=== PATIENT | male | born 1980 | race Two or more races ===

== ENCOUNTER → 2023-04-22 | Emergency (ER) | payer OTHER ==
[~2023-04-22] MED LIST: KETOROLAC 30 MG/ML INJ ONE; LABETALOL 20 MG/4ML SYRINGE IV ONE; LORazepam 2 MG/ML VIAL ONE
--- NOTE | 2023-04-22 12:19 | RAD REPORT ---
EXAM DESCRIPTION: [place] Single View04/22/2023 12:07 pm CLINICAL HISTORY: Chest pain COMPARISON: none FINDINGS: The lungs appear clear of acute infiltrate. The heart is normal size IMPRESSION: No acute abnormalities displayed
[2023-04-22 12:32] LABS: Absolute Lymphocytes (CBC) 3.4 K/uL (0.7-4.9); Hematocrit 49.9 % (39.6-49.0); Lymphocytes % 23.5 % (15.3-44.8); MCV 82.7 fL (80-100); MPV 8.5 fL (7.6-11.3); Platelets 504 thou/uL (152-406); RBC Red Blood Cell Count 6.03 M/uL (4.33-5.43)
[2023-04-22 12:35] LABS: Protime INR 1.18
[2023-04-22 12:45] LABS: Barbiturates NEGATIVE (NEGATIVE); Benzodiazepines NEGATIVE (NEGATIVE); Cocaine NEGATIVE (NEGATIVE); METHAMPHETAM NEGATIVE (NEGATIVE); Methadone NEGATIVE (NEGATIVE); Opiates NEGATIVE (NEGATIVE); Phencyclidine NEGATIVE (NEGATIVE); THC Cannibis POSITIVE (NEGATIVE)
[2023-04-22 12:46] LABS: ALT/SGPT 66 U/L (16-61); AST/SGOT 25 U/L (15-37); Albumin 3.9 g/dL (3.4-5.0); Alkaline Phosphatase 80 U/L (45-117); BUN Blood Urea Nitrogen 10 mg/dL (7-18); Bicarbonate 23 mEq/L (21-32); Bilirubin Total 0.4 mg/dL (0.2-1.0); Glomerular Filtration Rate 93 ml/min (=/>90); Glucose Level 123 mg/dL (74-106); Magnesium 1.9 mg/dL (1.6-2.4); NT PRO-BNP 8 pg/mL (<125); Potassium 4.1 mEq/L (3.5-5.1); Protein, Total 8.7 g/dL (6.4-8.2); Sodium Level 135 mEq/L (136-145); Troponin High Sensitivity 4.2 pg/mL (<58.9)
[2023-04-22 12:47] LABS: Bilirubin Direct < 0.1 mg/dL (0-0.2); Bilirubin Indirect, Calculated ND mg/dL (0.2-0.8)
--- NOTE | 2023-04-22 15:12 | EDPHYS ---
Physician Documentation [facility] Name: Delon Aburto Jr Age: 43 yrs Sex: Male : 1980 Arrival Date: 04/22/2023 Time: 11:44 Bed 16 Private MD: ED Physician Rafaela Gonzalez HPI: 04/22 12:00 This 43 yrs old Male presents to ER via EMS with complaints of chest pain. sp3 12:02 43-year-old male with a history of "electrolyte problems in the past" and "my heart sp3 stopped once they had to give me some medication to be started" as well as hyperlipidemia, anxiety, major depression, PTSD, who is a patient of the [facility] now presents to ED with chief complaint chest pain. Patient initially went to the [place] [facility] who performed an EKG which showed tachycardia without other ischemic changes coupled with elevated blood pressure therefore sent patient here via EMS. Patient states he is having chest pain and "muscle spasm on his chest and his back." He denies headache, URI symptoms, fever neck pain, throat pain, back pain (only back muscle spasm) abdominal pain, nausea, vomiting, diarrhea, syncope, near syncope, focal neurological deficit, bleeding of any kind, extremity spasm, drug use, known sick contacts, travel history or any other signs or symptoms on ROS at this time. Symptoms have been going on for 1 to 2 days off-and-on.. Historical: - Allergies: 11:56 No Known Allergies; kd3 - Immunization history:: Adult Immunizations up to date. - Social history:: Smoking status: Reported history of juuling and/or vaping. ROS: 12:05 Constitutional: Negative for fever, chills, and weight loss, Eyes: Negative for injury, sp3 pain, redness, and discharge, ENT: Negative for injury, pain, and discharge, Neck: Negative for injury, pain, and swelling, Respiratory: Negative for shortness of breath, cough, wheezing, and pleuritic chest pain, Abdomen/GI: Negative for abdominal pain, nausea, vomiting, diarrhea, and constipation, MS/Extremity: Negative for injury and deformity, Skin: Negative for injury, rash, and discoloration, Neuro: Negative for headache, weakness, numbness, tingling, and seizure, Psych: Negative for depression, anxiety, suicide ideation, homicidal ideation, and hallucinations, Allergy/Immunology: Negative for hives, rash, and allergies, Endocrine: Negative for neck swelling, polydipsia, polyuria, polyphagia, and marked weight changes, Hematologic/Lymphatic: Negative for swollen nodes, abnormal bleeding, and unusual bruising, 12:05 All other systems are negative, Exam: 12:06 Constitutional: This is a well developed, well nourished patient who is awake, alert, sp3 and in no acute distress. Head/Face: Normocephalic, atraumatic. Eyes: Pupils equal round and reactive to light, extra-ocular motions intact. Lids and lashes normal. Conjunctiva and sclera are non-icteric and not injected. Cornea within normal limits. Periorbital areas with no swelling, redness, or edema. ENT: Nares patent. No nasal discharge, no septal abnormalities noted. External auditory canals are clear. Oropharynx with no redness, swelling, or masses, exudates, or evidence of obstruction, uvula midline. Mucous membranes moist. Neck: Trachea midline, no thyromegaly or masses palpated, and no cervical lymphadenopathy. Supple, full range of motion without nuchal rigidity, or vertebral point tenderness. No Meningismus. Chest/axilla: Normal chest wall appearance and motion. Nontender with no deformity. No lesions are appreciated. Respiratory: Lungs have equal breath sounds bilaterally, clear to auscultation and percussion. No rales, rhonchi or wheezes noted. No increased work of breathing, no retractions or nasal flaring. Abdomen/GI: Soft, non-tender, with normal bowel sounds. No distension or tympany. No guarding or rebound. No evidence of tenderness throughout. Back: No spinal tenderness. No costovertebral tenderness. Full range of motion. Skin: Warm, dry with normal turgor. Normal color with no rashes, no lesions, and no evidence of cellulitis. MS/ Extremity: Pulses equal, no cyanosis. Neurovascular intact. Full, normal range of motion. Neuro: Awake and alert, GCS 15, oriented to person, place, time, and situation. Cranial nerves II-XII grossly intact. Motor strength 5/5 in all extremities. Sensory grossly intact. Cerebellar exam normal. Normal gait. Psych: Awake, alert, with orientation to person, place and time. Behavior, mood, and affect are within normal limits. 12:06 Cardiovascular: Patient is tachycardic. Remainder of cardiac exam is normal., 12:06 ECG was reviewed by the Attending Physician. EKG demonstrates sinus tachycardia at 102 bpm with normal intervals, normal axis, normal QRS and nonspecific diffuse ST's ST changes with T wave inversions diffusely without any significant ischemic changes. No old EKGs available. Vital Signs: 11:52 BP 142 / 113; Pulse 101; Resp 20; Pulse Ox 97% on R/A; Weight 108.86 kg; Height 6 ft. 3 kd3 in. ; Pain 8/10; 11:57 Temp 98.7(O); kd3 12:33 BP 151 / 113; Pulse 96; Resp 17; Pulse Ox 97% on R/A; kd3 14:31 BP 158 / 126; Pulse 111; Resp 15; Pulse Ox 97% on R/A; kd3 15:11 BP 147 / 118; Pulse 119; Resp 17; Pulse Ox 97% on R/A; kd3 15:40 BP 151 / 119; Pulse 93; Resp 17; Pulse Ox 96% on R/A; kd3 16:31 BP 143 / 111; Pulse 86; Resp 17; Pulse Ox 96% on R/A; kd3 17:05 BP 141 / 108; Pulse 89; Resp 17; Pulse Ox 98% on R/A; kd3 17:39 BP 131 / 107; Pulse 91; Resp 15; Pulse Ox 97% on R/A; kd3 11:52 Body Mass Index 30.00 (108.86 kg, 190.5 cm) kd3 11:52 Pain Scale: Adult kd3 MDM: 11:53 Patient medically screened. sp3 12:07 Data reviewed: vital signs, nurses notes, EMS record, lab test result(s), EKG, sp3 radiologic studies. ED course: 43-year-old male with history above now [facility]. Differential diagnosis includes acute coronary syndrome spectrum, musculoskeletal pain, GERD/reflux, pulmonary pathology, among others. I am not highly suspicious for aortic pathology including dissection or aneurysm, sepsis, shock or any other critical pathology. Will also obtain a urine drug screen. Disposition pending workup and patient course.. 15:11 ED course: Patient still tachycardic and having chest pain. At this point we will give sp3 labetalol IV and CT scan of the chest. Will consider admiting patient to observation status.. 17:38 ED course: Vital signs now significantly better and patient is sleeping. CT scan of the sp3 chest demonstrates no abnormality. We will safely discharge him home at this time.. 04/22 11:53 Order name: Basic Metabolic Panel; Complete Time: 13:18 04/22 11:53 Order name: CBC with Diff; Complete Time: 13:18 04/22 11:53 Order name: LFT's; Complete Time: 13:18 04/22 11:53 Order name: Magnesium; Complete Time: 13:18 04/22 11:53 Order name: NT PRO-BNP; Complete Time: 13:18 04/22 11:53 Order name: PT-INR; Complete Time: 13:18 04/22 11:53 Order name: Troponin HS; Complete Time: 13:18 04/22 12:00 Order name: UDS; Complete Time: 13:18 04/22 12:13 Order name: [place]; Complete Time: 13:18 04/22 11:53 Order name: XRAY Chest (1 view); Complete Time: 12:04/22 15:16 Order name: CT Chest For PE Angio; Complete Time: 17:36 04/22 11:53 Order name: EKG; Complete Time: 11:54 04/22 11:53 Order name: Cardiac monitoring; Complete Time: 12:29 04/22 11:53 Order name: EKG - Nurse/Tech; Complete Time: 12:04 04/22 11:53 Order name: IV Saline Lock; Complete Time: 12:04/22 11:53 Order name: Labs collected and sent; Complete Time: 12:29 04/22 11:53 Order name: O2 Per Protocol; Complete Time: 12:04/22 11:53 Order name: O2 Sat Monitoring; Complete Time: 12:04/22 13:36 Order name: Recheck Vital Signs; Complete Time: 15:17 sp3 Administered Medications: 14:30 Drug: Ativan IVP 1 mg IVP once Route: IVP; Site: left forearm; kd3 14:30 Drug: Ketorolac IVP 30 mg IVP once Route: IVP; Site: left forearm; kd3 15:26 Drug: Labetalol IV 10 mg IV at calculated rate once Route: IV; Rate: calculated rate; kd3 Site: left femoral; Disposition Summary: 04/22/23 17:39 Discharge Ordered Notes: Location: Home(04/22/23 17:39) sp3 Condition: Stable(04/22/23 17:39) sp3 Diagnosis - Chest pain, unspecified sp3 Followup: sp3 - With: Private Physician - When: Upon discharge from the Emergency Department - Reason: Continuance of care Followup: sp3 - With: Solomon Cardona MD - When: Upon discharge from the Emergency Department - Reason: Recheck today's complaints Discharge Instructions: - Discharge Summary Sheet sp3 - Nonspecific Chest Pain, Adult sp3 - Muscle Cramps and Spasms sp3 Forms: - Medication Reconciliation Form sp3 - Thank You Letter sp3 - Antibiotic Education sp3 - Prescription Opioid Use sp3 - Patient Portal Instructions sp3 - Leadership Thank You Letter sp3 Prescriptions: - Diclofenac Sodium 75 mg Oral Tablet Sustained Release - take 1 tablet ORAL route 2 times per day; 30 tablet; Refills: 0, Product sp3 Selection Permitted - Cyclobenzaprine 5 mg Oral Tablet - take 1 tablet ORAL route 3 times per day As needed; 15 tablet; Refills: 0, sp3 Product Selection Permitted Signatures: Dispatcher [employer] EDMS Rafaela Gonzalez MD MD sp3 Damari Sam RN RN kd3 Corrections: (The following items were deleted from the chart) 15:15 15:11 Home sp3 sp3 15:15 15:11 Stable sp3 sp3 15:15 15:11 Chest pain, muscle spasm, back spasm sp3 sp3 15:17 15:11 ED course: Patient improved after medications. Vital signs are improved with sp3 blood pressure lowering and heart rate in the 90s. He is resting comfortably. We will discharge him home on diclofenac [facility] sp3 17:38 15:11 ED course: Patient still tachycardic and having chest pain. At this point we will sp3 give labetalol IV and CT scan of the chest. Will admit patient to observation status and when serial cardiac markers obtain cardiology consultation.. sp3
--- NOTE | 2023-04-22 15:12 | ER ---
Nurse's Notes [facility] Name: Delon Aburto Jr Age: 43 yrs Sex: Male : 1980 Arrival Date: 04/22/2023 Time: 11:44 Bed 16 Private MD: Diagnosis: Chest pain, unspecified Presentation: 04/22 11:52 Chief complaint: EMS states: [facility] kd3 located at the center of the chest. Pt states that he can feel pulsating in his chest. Pt reports that he takes amlodipine for his blood pressure and he took 4 baby aspirins 6 hours prior to arrival. Pt is noted to be hypertensive on the monitor. Pt is alert and oriented x 4, respirations are even and unlabored, pt's skin is cool to the touch despite the pt reporting feeling "hot". EKG done in the room and provided to the provider. Coronavirus screen: Vaccine status: Patient reports being unvaccinated. Ebola Screen: No symptoms or risks identified at this time. Initial Sepsis Screen: Does the patient meet any 2 criteria? No. Patient's initial sepsis screen is negative. Does the patient have a suspected source of infection? No. Patient's initial sepsis screen is negative. Risk Assessment: Do you want to hurt yourself or someone else? Patient reports no desire to harm self or others. Onset of symptoms was April 22, 2023. 11:52 Method Of Arrival: EMS: [facility] kd3 11:52 Acuity: MARILYN 3 kd3 Triage Assessment: 11:57 General: Appears uncomfortable, Behavior is calm, cooperative. Pain: Complains of pain kd3 in chest. Neuro: Level of Consciousness is awake, alert, obeys commands, Oriented to person, place, time, situation. Cardiovascular: Patient's skin is warm and dry. Respiratory: Airway is patent Trachea midline Respiratory effort is even, unlabored, Respiratory pattern is regular, symmetrical. Historical: - Allergies: 11:56 No Known Allergies; kd3 - Immunization history:: Adult Immunizations up to date. - Social history:: Smoking status: Reported history of juuling and/or vaping. Screenin:32 [facility] ED Fall Risk Assessment (Adult) History of falling in the last 3 months, kd3 including since admission No falls in past 3 months (0 pts) Confusion or Disorientation No (0 pts) Intoxicated or Sedated No (0 pts) Impaired Gait No (0 pts) Mobility Assist Device Used No (0 pt) Altered Elimination No (0 pt) Score/Fall Risk Level 0 - 2 = Low Risk Oriented to surroundings. Abuse screen: Denies threats or abuse. Denies injuries from another. Nutritional screening: No deficits noted. Tuberculosis screening: No symptoms or risk factors identified. Assessment: 12:29 General: PT seen resting in the stretcher, pt appears uncomfortable and is complaining kd3 of upper epigastric cramping and chest pain. Pt remains hypertensive on the monitor and states that he did take his amlodipine and anti-anxiety medications this morning. IV access obtained in the left forearm using ultrasound guided technique. Blood work collected and sent to the lab. Pt urine sample collected and sent to the lab. When the patient stood up to use the urinal, pt's heart rate increased to 160's. Pt now resting in the stretcher with HR in the 90's, side rails are up x 2, and call light is within reach. . 14:30 General: This RN administered ant-anxiety medications and pain medications. Updated the kd3 patient on the plan to recheck his vital signs after medication administration. . 15:12 General: Pt reports minimal relied in symptoms with medications. Pt states that he kd3 still has chest pain. . Vital Signs: 11:52 BP 142 / 113; Pulse 101; Resp 20; Pulse Ox 97% on R/A; Weight 108.86 kg; Height 6 ft. 3 kd3 in. ; Pain 8/10; 11:57 Temp 98.7(O); kd3 12:33 BP 151 / 113; Pulse 96; Resp 17; Pulse Ox 97% on R/A; kd3 14:31 BP 158 / 126; Pulse 111; Resp 15; Pulse Ox 97% on R/A; kd3 15:11 BP 147 / 118; Pulse 119; Resp 17; Pulse Ox 97% on R/A; kd3 15:40 BP 151 / 119; Pulse 93; Resp 17; Pulse Ox 96% on R/A; kd3 16:31 BP 143 / 111; Pulse 86; Resp 17; Pulse Ox 96% on R/A; kd3 17:05 BP 141 / 108; Pulse 89; Resp 17; Pulse Ox 98% on R/A; kd3 17:39 BP 131 / 107; Pulse 91; Resp 15; Pulse Ox 97% on R/A; kd3 11:52 Body Mass Index 30.00 (108.86 kg, 190.5 cm) kd3 11:52 Pain Scale: Adult kd3 ED Course: 11:46 Patient arrived in ED. em1 11:48 Rafaela Gonzalez MD is Attending Physician. sp3 11:52 Damari Sam, AISHA is Primary Nurse. kd3 11:56 Triage completed. kd3 11:57 Arm band placed on right wrist. kd3 12:09 XRAY Chest (1 view) In Process Unspecified. EDMS 12:29 [place] Sent. kd3 12:29 UDS Sent. kd3 12:29 Basic Metabolic Panel Sent. kd3 12:29 CBC with Diff Sent. kd3 12:29 LFT's Sent. kd3 12:29 Magnesium Sent. kd3 12:29 NT PRO-BNP Sent. kd3 12:29 PT-INR Sent. kd3 12:29 Troponin HS Sent. kd3 12:33 Inserted saline lock: 20 gauge in left forearm, using aseptic technique. Blood kd3 collected. 14:32 Patient has correct armband on for positive identification. Provided Education on: kd3 anti-anxiety medications . 15:59 CT Chest For PE Angio In Process Unspecified. EDMS 17:38 Solomon Cardona MD is Referral Physician. sp3 17:50 No provider procedures requiring assistance completed. IV discontinued, intact, kd3 bleeding controlled, No redness/swelling at site. Pressure dressing applied. Administered Medications: 14:30 Drug: Ativan IVP 1 mg IVP once Route: IVP; Site: left forearm; kd3 14:30 Drug: Ketorolac IVP 30 mg IVP once Route: IVP; Site: left forearm; kd3 15:26 Drug: Labetalol IV 10 mg IV at calculated rate once Route: IV; Rate: calculated rate; kd3 Site: left femoral; Medication: 14:32 VIS not applicable for this client. kd3 Outcome: 15:11 Discharge ordered by . sp3 17:39 Discharge ordered by . sp3 17:51 Discharged to home ambulatory, kd3 17:51 Condition: stable 17:51 Discharge instructions given to patient, Instructed on discharge instructions, follow up and referral plans. Demonstrated understanding of instructions, follow-up care, medications, Prescriptions given X 2, 17:51 Patient left the ED. kd3 Signatures: Dispatcher [employer] Yobany Wheeler em1 Rafaela Gonzalez MD MD sp3 Damari Sam, RN RN kd3
--- NOTE | 2023-04-22 17:26 | RAD REPORT ---
EXAM DESCRIPTION: CT - Chest For Pe Angio - 04/22/2023 3:58 pm CLINICAL HISTORY: CHEST PAIN COMPARISON: No comparisons TECHNIQUE: Thin axial CT images of the chest were obtained following administration of 100 mL Isovue 370 IV contrast. Multiplanar reconstructions, and maximum intensity projection reconstructions were generated and reviewed. Exam utilizes a protocol for optimal evaluation of pulmonary arterial tree. All CT scans are performed using dose optimization technique as appropriate and may include automated exposure control or mA/KV adjustment according to patient size. FINDINGS: Pulmonary arteries are normal. No emboli or other suspicious finding. No acute or signific ant aorta findings. No mass or infiltrate in the lung parenchyma. No pleural thickening or pleural effusion. No pneumotho rax. No abnormal mediastinal or hilar masses or lymphadenopathy seen. No chest wall mass or abnormal axill iary lymphadenopathy. Diffuse hepatic parenchymal hypoattenuation suggesting steatosis. IMPRESSION: No evidence of acute central pulmonary emboli. No other acute pulmonary process.
[2023-04-22 19:49] VITALS: TEMP 98.7; O2SAT 97
[2023-04-22 19:59] VITALS: BP 131/107
--- NOTE | 2023-04-23 13:25 | EKG ---
Test Date: 2023-04-22 Test Time: 11:48:32 Still Operator: SHADI MEASUREMENT RESULTS: Intervals: Rate: 102 WI: 162 QRSD: 82 QT: 338 QTc: 440 [place]: P: 63 WI: 162 QRS: 69 T: 8 INTERPRETIVE STATEMENTS: Sinus tachycardia Nonspecific ST and T wave abnormality Abnormal ECG No previous ECG available for comparison Electronically Signed On 04-23-23 13:22:49 CONTACT FINGER ASSEMBLER by Solomon Cardona
== END ==
LOC: ER 11:44
DX: R07.89 Other chest pain (principal)
CPT/HCPCS: 93005; 85025; 80048; 36415; 83735; 85610; 80178; 80076; 84484; 83880; 80307; 71275; 71045; 99284; Q9967

== ENCOUNTER 2023-08-01 11:28 | Observation (INO) | payer OTHER ==
[2023-08-01] MEDS ORDERED: LABETALOL 20 MG/4ML SYRINGE IV ONE ×2 (11:50→13:17)
[2023-08-01] MEDS ORDERED: ASPIRIN 81 MG CHEWABLE TABLET ONE (11:50)
--- NOTE | 2023-08-01 11:54 | RAD REPORT ---
EXAM DESCRIPTION: RAD - Chest Single View - 08/01/2023 11:47 am CLINICAL HISTORY: CHEST PAIN COMPARISON: Chest Single View dated 04/22/2023 FINDINGS: Lines: None. Lungs: No evidence of edema or pneumonia. Pleural: No significant pleural effusions or pneumothorax. Cardiac: The heart size is within normal limits. Mediastinum: Within normal limits. Bones: No acute fractures. Other: None IMPRESSION: No acute cardiopulmonary disease.
[2023-08-01] MEDS ORDERED: LORazepam 2 MG/ML VIAL ONE (11:58)
[2023-08-01 12:06] LABS: Absolute Basophils 0.1 K/uL (0-0.5); Absolute Eosinophils 0.4 K/uL (0-0.5); Absolute Lymphocytes (CBC) 3.8 K/uL (0.7-4.9); Absolute Monocytes 1.1 K/uL (0.1-1.3); Absolute Neutrophil 8.2 K/uL (1.8-8.0); Basophils % 0.8 % (0-1.3); Eosinophils % 2.8 % (0-4.4); Hematocrit 47.5 % (39.6-49.0); Hemoglobin 15.5 g/dL (13.6-17.9); Lymphocytes % 28.1 % (15.3-44.8); MCH 27.3 pg (27.0-35.0); MCHC 32.6 g/dL (32.0-36.0); MCV 83.9 fL (80-100); MPV 8.8 fL (7.6-11.3); Monocytes % 8.2 % (3.3-12.3); Neutrophils % 60.1 % (41.7-73.7); Nucleated Red Blood Cells % 0.1 % (0-0); Platelets 433 thou/uL (152-406); RBC Red Blood Cell Count 5.67 M/uL (4.33-5.43); Red Cell Distribution Width 13.5 % (12.1-15.2)
[2023-08-01 12:21] LABS: Anion Gap 8.8 mEq/L (5.0-15.0); Magnesium 1.9 mg/dL (1.6-2.4); Potassium 3.8 mEq/L (3.5-5.1); Troponin High Sensitivity 3.5 pg/mL (<58.9)
[2023-08-01] MEDS ORDERED: KETOROLAC 30 MG/ML INJ ONE (13:24)
[2023-08-01 14:37] LABS: PT Prothrombin Time 12.6 SECONDS (9.5-12.5); Protime INR 1.15
[2023-08-01] MEDS ORDERED: HYDRALAZINE HCL 25 MG TABLET ONE (14:38)
[2023-08-01] MEDS ORDERED: NITROGLYCERIN 0.4 MG/TAB SL ONE (14:50)
--- NOTE | 2023-08-01 15:17 | EDPHYS ---
Physician Documentation [facility] Name: Delon Aburto Jr Age: 43 yrs Sex: Male : 1980 Arrival Date: 08/01/2023 Time: 11:28 Bed 7 Private MD: ED Physician Arnie Purcell HPI: 07/31 11:36 This 43 yrs old [place] Male presents to ER via Ambulatory with complaints of Chest 7 Pain, Weakness, Blood Pressure Problem. 11:36 Onset: The symptoms/episode began/occurred 3 month(s) ago. 43-year-old male with past [facility] medical history of hypertension, PTSD, and anxiety presents to the ER complaining of chest pain and elevated blood pressure for the past 3 months. Reports that he has been unable to fill his blood pressure medicine and his anxiety medication due to the [place] constantly rescheduling his appointments. Reports difficulty sleeping. Reports that his symptoms have not worsened, but are unchanged from his last visit to the ER. Denies syncope, dizziness, shortness of breath, fever, cough, or any other symptoms at this time.. Historical: - Allergies: 11:35 lactose (bulk); ld1 - PMHx: 11:35 Hypertensive disorder; ld1 - PSHx: 11:35 None; ld1 - Immunization history:: Adult Immunizations up to date. - Infectious Disease History:: Denies. - Social history:: Smoking status: Reported history of juuling and/or vaping. ROS: 11:36 Constitutional: Per HPI jh7 Exam: 11:36 Constitutional: This is a well developed, well nourished patient who is awake, alert, jh7 and in no acute distress. Head/Face: Normocephalic, atraumatic. Neck: Trachea midline, no thyromegaly or masses palpated, and no cervical lymphadenopathy. Supple, full range of motion without nuchal rigidity, or vertebral point tenderness. No Meningismus. Cardiovascular: Regular rate and rhythm with a normal S1 and S2. No gallops, murmurs, or rubs. Normal PMI, no JVD. No pulse deficits. Respiratory: Lungs have equal breath sounds bilaterally, clear to auscultation and percussion. No rales, rhonchi or wheezes noted. No increased work of breathing, no retractions or nasal flaring. Abdomen/GI: Soft, non-tender, with normal bowel sounds. No distension or tympany. No guarding or rebound. No evidence of tenderness throughout. Back: No spinal tenderness. No costovertebral tenderness. Full range of motion. Skin: Warm, dry with normal turgor. Normal color with no rashes, no lesions, and no evidence of cellulitis. MS/ Extremity: Pulses equal, no cyanosis. Neurovascular intact. Full, normal range of motion. Neuro: Awake and alert, GCS 15, oriented to person, place, time, and situation. Cranial nerves II-XII grossly intact. Motor strength 5/5 in all extremities. Sensory grossly intact. Cerebellar exam normal. Normal gait. 11:36 Psych: Behavior/mood is anxious, Vital Signs: 11:36 BP 166 / 120; Pulse 94; Resp 18; Temp 97.5; Pulse Ox 96% on R/A; Weight 111.13 kg; ld1 Height 6 ft. 4 in. ; Pain 6/10; 12:35 Pulse 81; Resp 18; Pulse Ox 97% on R/A; ld1 12:37 BP 160 / 116; ld1 14:04 BP 140 / 112; Pulse 83; Resp 15; Pulse Ox 95% ; iw 15:16 BP 145 / 92; Pulse 85; Resp 18; Pulse Ox 96% on R/A; ld1 11:36 Body Mass Index 29.82 (111.13 kg, 193.04 cm) ld1 11:36 Pain Scale: Adult ld1 MDM: 11:29 Patient medically screened. [facility] 15:35 Differential diagnosis: AMI, NSTEMI, unstable angina, hypertensive emergency. Data [facility] reviewed: vital signs, nurses notes, lab test result(s), EKG, radiologic studies, plain films. Consideration of Admission/Observation Patient was admitted/placed on observation. Management of patient was discussed with the following: Hospitalist: Dr. Francis. I considered the following discharge prescriptions or medication management in the emergency department Medications were administered in the Emergency Department. See MAR. Independent interpretation of the following test(s) in the Emergency Department EKG: See my EKG interpretation above. Care significantly affected by the following chronic conditions: Hypertension. Scoring Tools HEART Score: History: ECG: Age: Risk Factors: 1 or 2 risk factors (1), Troponin: Total Score = 3. Counseling: I had a detailed discussion with the patient and/or guardian regarding the historical points, exam findings, and any diagnostic results supporting the discharge/admit diagnosis, the need for further work-up and treatment in the hospital. Response to treatment: the patient's symptoms have mildly improved after treatment. ED course: The patient's blood pressure finally decreased and chest pain went from a 10 out of 10 to a 4 out of 10 after multiple doses of blood pressure medicine. The patient responded best to the nitroglycerin. Will admit him for chest pain and hypertensive urgency under observation. Patient stable at this time.. 07/31 11:40 Order name: Basic Metabolic Panel; Complete Time: 12:27 [facility] 07/31 11:40 Order name: CBC with Diff; Complete Time: 12:27 [facility] 07/31 11:40 Order name: Magnesium; Complete Time: 12:27 [facility] 07/31 11:40 Order name: NT PRO-BNP; Complete Time: 12:27 [facility] 07/31 11:40 Order name: PT-INR; Complete Time: 14:39 [facility] 07/31 11:40 Order name: Troponin HS; Complete Time: 12:27 [facility] 07/31 14:44 Order name: Troponin High Sensitivity; Complete Time: 15:33 [facility] 07/31 15:48 Order name: CBC with Automated Diff EDMD 07/31 15:48 Order name: CBC with Automated Diff EDMD 07/31 15:48 Order name: Comprehensive Metabolic Panel [facility] 07/31 15:48 Order name: Comprehensive Metabolic Panel [facility] 07/31 15:48 Order name: Lipid Profile [facility] 07/31 15:48 Order name: Lipid Profile [facility] 07/31 15:48 Order name: Troponin High Sensitivity [facility] 07/31 15:48 Order name: Troponin High Sensitivity EDMD 07/31 15:48 Order name: Troponin High Sensitivity EDMD 07/31 15:48 Order name: Troponin High Sensitivity [facility] 07/31 11:40 Order name: XRAY Chest (1 view); Complete Time: 11:55 [facility] 07/31 15:48 Order name: Echo with Doppler EDMD 07/31 15:48 Order name: Echo with Doppler EDMD 07/31 11:40 Order name: EKG; Complete Time: 11:41 [facility] 07/31 15:48 Order name: CONS Physician Consult [facility] 07/31 11:40 Order name: Cardiac monitoring; Complete Time: 11:48 [facility] 07/31 11:40 Order name: EKG - Nurse/Tech; Complete Time: 11:48 [facility] 07/31 11:40 Order name: IV Saline Lock; Complete Time: 11:51 [facility] 07/31 11:40 Order name: Labs collected and sent; Complete Time: 11:51 [facility] 07/31 11:40 Order name: O2 Per Protocol; Complete Time: 11:48 [facility] 07/31 11:40 Order name: O2 Sat Monitoring; Complete Time: 11:48 [facility] 07/31 12:27 Order name: Recheck B/P; Complete Time: 12:35 [facility] 07/31 12:47 Order name: Misc. Order: recollect blue top per lab; Complete Time: 13:14 jh7 EC:45 Rate is 70 beats/min. Rhythm is regular. QRS [place] is Normal. CO interval is normal at jh7 180 msec. QRS interval is normal at 86 msec. QT interval is normal at 398 msec. No Q waves. T waves are Normal. No ST changes noted. Clinical impression: Normal ECG. Administered Medications: 11:54 Drug: Labetalol IV 10 mg IV at 1 calculated rate once Route: IV; Rate: 1 calculated ld1 rate; Site: right antecubital; 16:23 Follow up: IV Status: Completed infusion bp 11:55 Drug: Aspirin PO Chewable Tablet 324 mg PO once; 81 mg tablets x 4 Route: PO; ld1 16:23 Follow up: Response: No adverse reaction bp 12:04 Drug: Ativan IVP 1 mg IVP once Route: IVP; Site: right antecubital; bp 13:42 Follow up: Response: No adverse reaction iw 13:20 Drug: Labetalol IV 10 mg IV at 1 calculated rate once Route: IV; Rate: 1 calculated bp rate; Site: right antecubital; 16:23 Follow up: IV Status: Completed infusion bp 13:35 Drug: Ketorolac IVP 30 mg IVP once Route: IVP; Site: right antecubital; iw 13:42 Follow up: Response: No adverse reaction iw 14:44 Drug: HydrALAZINE PO 25 mg PO once Route: PO; ld1 14:57 Follow up: Response: No adverse reaction bp 14:57 Drug: Nitroglycerin Sublingual 0.4 mg Sublingual once; every five minute if needed x3 bp Route: Sublingual; 16:23 Follow up: Response: No adverse reaction bp Disposition: 19:27 Co-signature as Attending Physician, Arnie Purcell MD I reviewed the patient's care rt provided by the Advanced Practice Provider and agree with the diagnosis and treatment plan. Disposition Summary: 08/01/23 15:16 Hospitalization Ordered Notes: Hospitalization Status: Observation [facility] Provider: Evin Francis [facility] Location: Telemetry/MedSurg (observation) [facility] Condition: Fair [facility] Problem: an ongoing problem [facility] Symptoms: have worsened [facility] Bed/Room Type: Standard [facility] Room Assignment: 208(08/01/23 15:51) hb Diagnosis - Chest pain, unspecified [facility] - Hypertensive urgency [facility] Forms: - Medication Reconciliation Form [facility] - SBAR form [facility] - Leadership Thank You Letter [facility] Signatures: Dispatcher [employer] EDDeysi Nevarez RN RN iw Maggy Pandey RN RN hb London Calderon RN RN bp Penelope Geronimo RN RN ld1 Letty Pate, APPAREL DESIGNER APPAREL DESIGNER [facility] Arnie Purcell MD MD rt Corrections: (The following items were deleted from the chart) 11:41 11:41 BASIC METABOLIC PANEL+C.LAB.BRZ ordered. EDMD EDMS 11:41 11:41 CBC+H.LAB.BRZ ordered. EDMS EDMS 11:41 11:41 MAGNESIUM+C.LAB.BRZ ordered. EDMS EDMS 11:41 11:41 PROBNP+C.LAB.BRZ ordered. EDMS EDMS 11:41 11:41 PROTIME (+INR)+COAG.LAB.BRZ ordered. EDMS EDMS 11:41 11:41 Troponin High Sensitivity+C.LAB.BRZ ordered. EDMS EDMS 15:51 15:16 [facility] hb
--- NOTE | 2023-08-01 15:17 | ER ---
Nurse's Notes [facility] Name: Delon Aburto Jr Age: 43 yrs Sex: Male : 1980 Arrival Date: 08/01/2023 Time: 11:28 Bed 7 Private MD: Diagnosis: Chest pain, unspecified;Hypertensive urgency Presentation: 07/31 11:36 Chief complaint: Patient states: BP elevated, CP, SOB, cant sleep well for a couple ld1 months. Having trouble following up with PCP. Coronavirus screen: Client denies travel out of the [place] in the last 14 days. At this time, the client does not indicate any symptoms associated with coronavirus-19. Ebola Screen: Patient denies travel to an Ebola-affected area in the 21 days before illness onset. Initial Sepsis Screen: Does the patient meet any 2 criteria? No. Patient's initial sepsis screen is negative. Does the patient have a suspected source of infection? No. Patient's initial sepsis screen is negative. Risk Assessment: Do you want to hurt yourself or someone else? Patient reports no desire to harm self or others. Onset of symptoms was June 01, 2023. 11:36 Method Of Arrival: Ambulatory ld1 11:36 Acuity: MARILYN 2 ld1 Triage Assessment: 11:44 General: Appears in no apparent distress. Behavior is calm, cooperative, appropriate ll1 for age. Pain: Complains of pain in chest. Cardiovascular: Reports chest pain, fatigue, elevated BP. 11:44 Respiratory: Reports shortness of breath. ll1 Historical: - Allergies: 11:35 lactose (bulk); ld1 - PMHx: 11:35 Hypertensive disorder; ld1 - PSHx: 11:35 None; ld1 - Immunization history:: Adult Immunizations up to date. - Infectious Disease History:: Denies. - Social history:: Smoking status: Reported history of juuling and/or vaping. Screenin:[facility] ED Fall Risk Assessment (Adult) History of falling in the last 3 months, ld1 including since admission No falls in past 3 months (0 pts). Abuse screen: Denies threats or abuse. Denies injuries from another. Nutritional screening: No deficits noted. Tuberculosis screening: No symptoms or risk factors identified. Assessment: 12:35 General: Appears in no apparent distress. comfortable, Behavior is calm, cooperative, ld1 appropriate for age. Pain: Complains of pain in chest Pain does not radiate. Pain began suddenly. Neuro: Level of Consciousness is awake, alert, obeys commands, Oriented to person, place, time, situation. Cardiovascular: Capillary refill < 3 seconds Patient's skin is warm and dry. Rhythm is sinus rhythm. Respiratory: Airway is patent Respiratory effort is even, unlabored. 14:04 Reassessment: Patient appears in no apparent distress at this time. Patient is alert, iw oriented x 3, equal unlabored respirations, skin warm/dry/pink. 15:16 Reassessment: Patient appears in no apparent distress at this time. No changes from ld1 previously documented assessment. Patient and/or family updated on plan of care and expected duration. Pain level reassessed. Patient is alert, oriented x 3, equal unlabored respirations, skin warm/dry/pink. 16:07 Reassessment: REPORT FAXED TO 2ND FLOOR. bp Vital Signs: 11:36 BP 166 / 120; Pulse 94; Resp 18; Temp 97.5; Pulse Ox 96% on R/A; Weight 111.13 kg; ld1 Height 6 ft. 4 in. ; Pain 6/10; 12:35 Pulse 81; Resp 18; Pulse Ox 97% on R/A; ld1 12:37 BP 160 / 116; ld1 14:04 BP 140 / 112; Pulse 83; Resp 15; Pulse Ox 95% ; iw 15:16 BP 145 / 92; Pulse 85; Resp 18; Pulse Ox 96% on R/A; ld1 11:36 Body Mass Index 29.82 (111.13 kg, 193.04 cm) ld1 11:36 Pain Scale: Adult ld1 ED Course: 11:29 Patient arrived in ED. rg4 11:29 [facility]ate [facility] jh7 11:29 rAnie Purcell MD is Attending Physician. jh7 11:35 Arm band placed on Patient placed in an exam room, on a stretcher. ld1 11:38 Triage completed. ld1 11:43 London Calderon, AISHA is Primary Nurse. bp 11:49 XRAY Chest (1 view) In Process Unspecified. EDMS 11:51 Inserted saline lock: 20 gauge in right antecubital area, using aseptic technique. bp Blood collected. 11:52 Basic Metabolic Panel Sent. bp 11:52 CBC with Diff Sent. bp 11:52 Magnesium Sent. bp 11:52 NT PRO-BNP Sent. bp 11:52 PT-INR Sent. bp 11:52 Troponin HS Sent. bp 12:34 Primary Nurse role handed off by London Calderon, RN ld1 12:34 Penelope Geronimo, RN is Primary Nurse. ld1 12:35 Patient has correct armband on for positive identification. Placed in gown. Bed in low ld1 position. Call light in reach. Side rails up X2. personnel monitor on. Pulse ox on. NIBP on. Door closed. Noise minimized. Warm blanket given. 12:35 No provider procedures requiring assistance completed. O2 via RA. ld1 14:57 Troponin High Sensitivity Sent. bp 15:15 Evin Francis MD is Hospitalizing Provider. jh7 Administered Medications: 11:54 Drug: Labetalol IV 10 mg IV at 1 calculated rate once Route: IV; Rate: 1 calculated ld1 rate; Site: right antecubital; 16:23 Follow up: IV Status: Completed infusion bp 11:55 Drug: Aspirin PO Chewable Tablet 324 mg PO once; 81 mg tablets x 4 Route: PO; ld1 16:23 Follow up: Response: No adverse reaction bp 12:04 Drug: Ativan IVP 1 mg IVP once Route: IVP; Site: right antecubital; bp 13:42 Follow up: Response: No adverse reaction iw 13:20 Drug: Labetalol IV 10 mg IV at 1 calculated rate once Route: IV; Rate: 1 calculated bp rate; Site: right antecubital; 16:23 Follow up: IV Status: Completed infusion bp 13:35 Drug: Ketorolac IVP 30 mg IVP once Route: IVP; Site: right antecubital; iw 13:42 Follow up: Response: No adverse reaction iw 14:44 Drug: HydrALAZINE PO 25 mg PO once Route: PO; ld1 14:57 Follow up: Response: No adverse reaction bp 14:57 Drug: Nitroglycerin Sublingual 0.4 mg Sublingual once; every five minute if needed x3 bp Route: Sublingual; 16:23 Follow up: Response: No adverse reaction bp Medication: 12:35 VIS not applicable for this client. ld1 Outcome: 15:16 Decision to Hospitalize by Provider. 7 16:45 Patient left the ED. iw Signatures: Dispatcher [employer] Deysi Cuenca, RN RN Clau Pena rg4 London Calderon RN RN Chacha Mccauley RN RN ll1 Penelope Geronimo RN RN 1 Letty Pate, DISH CLOTH INSPECTOR DISH CLOTH INSPECTOR 7 Corrections: (The following items were deleted from the chart) 11:44 11:44 Cardiovascular: Reports chest pain, fatigue, elevated BP ll1 ll1
[2023-08-01] MEDS ORDERED: ACETAMINOPHEN 500 MG TAB PO PRN (15:43)
[2023-08-01] MEDS ORDERED: HYDRALAZINE HCL 20 MG/ML VIAL IV PRN (15:46)
--- NOTE | 2023-08-01 15:55 | P.HP ---
Certification for Inpatient Patient admitted to: Observation With expected LOS: <2 Midnights Patient will require the following post-hospital care: None Practitioner: I am a practitioner with admitting privileges, knowledge of patient current condition, hospital course, and medical plan of care. Services: Services provided to patient in accordance with Admission requirements found in Title 42 Section 412.3 of the Code of Federal Regulations Patient History Date of Service: 08/01/23 Reason for admission: Chest pain rule out acute coronary syndrome History of Present Illness: Patient is a 43-year-old gentleman who presents to the emergency room with chest discomfort. Patient has a history of hypertension. Patient has been poorly compliant as he states that the [place] has not been prescribing him his antihypertensives. He came to the emergency room because he was having some chest discomfort. Pain was mainly in the sternal region with radiation to the left arm. Patient came to the ER for further evaluation. Patient has been in the emergency room few months prior with similar complaints. At that time, patient's workup was negative and patient was scheduled to follow [facility] the [facility], the patient has never had follow-up as an outpatient. Patient was worked up in the emergency room, and CT PE protocol was unremarkable. Troponins have been negative. EKG with no acute findings. Patient denies any diaphoresis or shortness of breath. Patient denies any lightheadedness. Patient will be admitted to the hospital for rule out for acute coronary syndrome. Echocardiogram and stress test pending in a.m. Allergies lactose Adverse Reaction (Verified 08/01/23 15:49) Nausea/Vomiting Home Medications: Buspirone HCl [Buspar] 20 mg PO BID 08/01/23 [place] Carbonate [Lithotabs 300MG] 600 mg PO BEDTIME 08/01/23 Quetiapine Fumarate [Seroquel] 500 mg PO BEDTIME 08/01/23 Venlafaxine HCl [Effexor] 50 mg PO BID 08/01/23 hydrOXYzine HCL [Atarax] 25 mg PO BID 08/01/23 - Past Medical/Surgical History -: Hypertension Past Surgical History: Patient denies surgical history - Family History Father Family History: Reviewed- Non-Contributory - Social History Smoking Status: Current every day smoker Alcohol use: No CD- Drugs: No Review of Systems 10-point ROS is otherwise unremarkable Physical Examination - Vital Signs Temperature: 98 F Blood Pressure: 150/110 Pulse: 90 Respirations: 18 Pulse Ox (%): 96 - Physical Exam General: Alert, In no apparent distress, Oriented x3 HEENT: Atraumatic, PERRLA, Mucous membr. moist/pink, EOMI, Sclerae nonicteric Neck: Supple, 2+ carotid pulse no bruit, No LAD, Without JVD or thyroid abnormality Respiratory: Clear to auscultation bilaterally, Normal air movement Cardiovascular: Regular rate/rhythm, Normal S1 S2 Gastrointestinal: Normal bowel sounds, No tenderness Musculoskeletal: No tenderness Integumentary: No rashes Neurological: Normal gait, Normal speech, Normal strength at 5/5 x4 extr, Normal tone, Normal affect Lymphatics: No axilla or inguinal lymphadenopathy - Studies Laboratory Data (last 24 hrs) 08/01/23 08/01/23 08/01/23 13:19 11:50 11:50 WBC 13.60 H Hgb 15.5 Hct 47.5 Plt Count 433 H PT 12.6 H INR 1.15 Sodium 137 Potassium 3.8 BUN 10 Creatinine 1.01 Glucose 105 Magnesium 1.9 Assessment & Plan - Problems (Diagnosis) (1) Chest pain, rule out acute myocardial infarction Current Visit: Yes Status: Acute (2) Hypertensive urgency Current Visit: Yes Status: Acute - Plan -High-sensitivity troponin -Cardiology consultation -Echocardiogram and stress test -Repeat EKG -Strict blood pressure control -Lipid profile -Supervising Law Enforcement Analyst regarding modifying risk for cardiac disease Discharge Plan: Home Plan to discharge in: 24 Hours - Advance Directives Does patient have a Living Will: No Does patient have a Durable POA for Healthcare: No - Code Status/Comfort Care Code Status Assessed: Yes Code Status: Full Code Critical Care: No Time Spent Managing PTS Care (In Minutes): 40
[2023-08-01] MEDS: METOPROLOL TAR 25 MG TAB PO SCH (17:00)
[2023-08-01 17:18] VITALS: BMI 29.8
[2023-08-01] MEDS: LOSARTAN POTASSIUM 50 MG TABLET PO SCH (20:07)
[2023-08-01] MEDS: MORPHINE 2 MG/ML SYR IV PRN (20:07)
[2023-08-01] MEDS: ONDANSETRON 4 MG/2 ML VIAL IV PRN (20:17)
[2023-08-02 03:53] LABS: Absolute Basophils 0.1 K/uL (0-0.5); Absolute Eosinophils 0.5 K/uL (0-0.5); Absolute Monocytes 1.1 K/uL (0.1-1.3); Absolute Neutrophil 7.9 K/uL (1.8-8.0); Basophils % 0.5 % (0-1.3); Hematocrit 42.7 % (39.6-49.0); Hemoglobin 14.3 g/dL (13.6-17.9); MCH 28.1 pg (27.0-35.0); MCHC 33.6 g/dL (32.0-36.0); MCV 83.7 fL (80-100); MPV 8.6 fL (7.6-11.3); Monocytes % 8.4 % (3.3-12.3); Neutrophils % 63.1 % (41.7-73.7); Nucleated Red Blood Cells % 0.1 % (0-0); Platelets 345 thou/uL (152-406); Red Cell Distribution Width 13.5 % (12.1-15.2)
[2023-08-02 04:22] LABS: Albumin 3.3 g/dL (3.4-5.0); Albumin/Globulin Ratio 0.8 (1.1-1.8); Bilirubin Total 0.6 mg/dL (0.2-1.0); Protein, Total 7.3 g/dL (6.4-8.2); Troponin High Sensitivity 3.2 pg/mL (<58.9)
[2023-08-02 08:40] VITALS: O2SAT 98
[2023-08-02] MEDS: AMLODIPINE 10 MG TAB PO SCH (09:07)
--- NOTE | 2023-08-02 10:55 | P.DS ---
Admission Date: 08/01/23 Discharge Date: 08/02/23 Disposition: ROUTINE DISCHARGE Discharge Condition: GOOD Reason for Admission: Chest pain rule out acute coronary syndrome Brief History of Present Illness: Patient is a 43-year-old gentleman who presents to the emergency room with chest discomfort. Patient has a history of hypertension. Patient has been poorly compliant as he states that the [place] has not been prescribing him his an tihypertensives. He came to the emergency room because he was having some chest discomfort. Pain was mainly in the sternal region with radiation to the left arm. Patient came to the ER for further evaluation. Patient has been in the emergency room few months prior with similar complaints. At that time, patient's workup was negative and patient was scheduled to follow up with the [facility], the patient has never had follow-up as an outpatient. Patient was worked up in the emergency room, and CT PE protocol was unremarkable. Troponins have been negative. EKG with no acute findings. Patient denies any diaphoresis or shortness of breath. Patient denies any lightheadedness. Patient will be admitted to the hospital for rule out for acute coronary syndrome. Echocardiogram and stress test pending in a.m. Hospital Course: Patient is a 43 yo male with past medical history of Htn who presents with chest discomfort. Of note, pt presented with uncontrolled Htn and he was not compliant with his home meds. On admission, troponin was negative, CT PE protocol was unremarkable. We admitted pt to rule out ACS. Troponin was negative x 3 ( 3.5 -> 3.5 -> 3.2). Lipid panel showed Total cholestrol 223 and LDL 135. we started atorvastatin. Pt was advised to eat heart healthy diet. The [place] stress test lab was closed this week. Pt was advised to follow up with Dr. gerber in clinic. We did Echo and optimized BP regimen. Pt was in NAD prior to discharge. Vital Signs/Physical Exam: Temp Pulse Resp BP Pulse Ox 98.2 F 76 16 143/94 H 96 08/02/23 08:00 08/02/23 08:00 08/02/23 09:37 08/02/23 08:00 08/02/23 09:37 Laboratory Data at Discharge: WBC 12.60 thou/uL (4.3-10.9) H 08/02/23 03:00 Hgb 14.3 g/dL (13.6-17.9) 08/02/23 03:00 Hct 42.7 % (39.6-49.0) 08/02/23 03:00 Plt Count 345 thou/uL (152-406) 08/02/23 03:00 PT 12.6 SECONDS (9.5-12.5) H 08/01/23 13:19 INR 1.15 08/01/23 13:19 Sodium 138 mEq/L (136-145) 08/02/23 03:00 Potassium 4.0 mEq/L (3.5-5.1) 08/02/23 03:00 BUN 12 mg/dL (7-18) 08/02/23 03:00 Creatinine 1.07 mg/dL (0.70-1.30) 08/02/23 03:00 Glucose 109 mg/dL (74-106) H 08/02/23 03:00 Magnesium 1.9 mg/dL (1.6-2.4) 08/01/23 11:50 Total Bilirubin 0.6 mg/dL (0.2-1.0) 08/02/23 03:00 AST 23 U/L (15-37) 08/02/23 03:00 ALT 53 U/L (16-61) 08/02/23 03:00 Alkaline Phosphatase 73 U/L (45-117) 08/02/23 03:00 Triglycerides 246 mg/dL (<150) H 08/02/23 03:00 Cholesterol 223 mg/dL (<200) H 08/02/23 03:00 HDL Cholesterol 39 mg/dL (40-60) L 08/02/23 03:00 Cholesterol/HDL Ratio 5.72 08/02/23 03:00 Home Medications: Buspirone HCl [Buspar] 20 mg PO BID 08/01/23 [place] Carbonate [Lithotabs *] 600 mg PO BEDTIME 08/01/23 Quetiapine Fumarate [Seroquel] 500 mg PO BEDTIME 08/01/23 Venlafaxine HCl [Effexor] 50 mg PO BID 08/01/23 hydrOXYzine HCL [Atarax*] 25 mg PO BID 08/01/23 Amlodipine [Norvasc*] 10 mg PO DAILY 90 Days #90 tab 08/02/23 Atorvastatin Calcium [Lipitor] 40 mg PO BEDTIME 90 Days #90 tab 08/02/23 Losartan Potassium [Cozaar*] 50 mg PO BID 90 Days #90 tab 08/02/23 Metoprolol Tartrate [Lopressor*] 50 mg PO BID 6AM 6PM 30 Days #60 tab 08/02/23 New Medications: Losartan Potassium [Cozaar*] 50 mg PO BID 90 Days #90 tab Atorvastatin Calcium [Lipitor] 40 mg PO BEDTIME 90 Days #90 tab Metoprolol Tartrate [Lopressor*] 50 mg PO BID 6AM 6PM 30 Days #60 tab Amlodipine [Norvasc*] 10 mg PO DAILY 90 Days #90 tab Physician Discharge Instructions: Continue ad neil activity. Take atorvastatin, amlodipine, losartan, metoprolol and other home meds as prescribed. Follow up with Dr. Gerber in clinic within 1 week for [place] stress test. Follow up with PCP within 1 - 2 weeks. Diet: AHA Activity: Ad neil [facility]: [facility] [Primary Care Provider] -
[2023-08-02] MEDS: LORazepam 2 MG/ML VIAL IV ONE (12:32)
[2023-08-02 13:18] VITALS: BP 157/91; TEMP 98.1
--- NOTE | 2023-08-02 20:07 | CON ---
Date of Consultation: 08/02/2023 Reason For Consultation: Chest pain. History Of Present Illness: 43-year-old male who comes in the emergency room with chest pain. He sa id it travels from area to area, short-lived, just a few seconds and goes away. He does have benefit s at the [facility] where he follows up over there. Has no chest pain at the present time. Cardiac enzymes are negative. Past Medical History: Hypertension. Medications: Refer to reconciliation sheet for detailed list. Allergies: LACTOSE. Family History: No premature coronary artery disease or cancer. Social History: He is a smoker. Does not drink or use any drugs. Review of Systems: All systems reviewed and they were negative except as mentioned in HPI. Physical Examination: Vital Signs: Reviewed. Head and Neck: Pupils are equal, reactive to light. Intact eye movements. No JVD. No cervical lym phadenopathy. Neck is supple. Thyroid is not enlarged. Lungs: Clear to auscultation bilaterally. No rhonchi, wheezing, or crackles. No accessory muscle u se. Heart: Regular rate and rhythm. No extra sounds. Abdomen: Soft, nontender. Bowel sounds positive. No organomegaly. No masses or hernia. No rigidi ty or rebound. Extremities: No edema, clubbing, or cyanosis. Intact pulses. Skin: No rash. No nodule. Neurologic: Alert, awake, oriented x3. No acute focal deficits appreciated. Lymph Nodes: No cervical or axillary lymphadenopathy. Investigations: Labs were reviewed. Assessment And Recommendations: 1.Chest pain. Cardiac enzymes are negative. This is noncardiac pain. I recommend outpatient evalu ation with stress test and echo. 2.Dyslipidemia. Recommend Lipitor 40 mg q.h.s. 3.Hypertension. Continue home medication and adjust further if needed. SR/MODL Voice ID: [id number] Report ID: [id number]
[2023-08-02] MEDS ORDERED: ATORVASTATIN 40 MG TAB PO SCH (21:00)
--- NOTE | 2023-08-03 08:42 | ECHO ---
HEIGHT: 6 ft 4 in WEIGHT: 245 lb 0 oz DATE OF STUDY: 08/02/[address]: Evin Francis MD 2-DIMENSIONAL: YES M.MODE: YES DOPPLER: YES COLOR FLOW: YES TDS: PORTABLE: YES DEFINITY: BUBBLE STUDY: DIAGNOSIS: CHEST PAIN, RULE OUT ACUTE CORONARY SYNDROME CARDIAC HISTORY: CATHERIZATION: NO SURGERY: NO PROSTHETIC VALVE: NO PACEMAKER: NO MEASUREMENTS (cm) DIASTOLIC (NORMALS) SYSTOLIC (NORMALS) IVSd 1.1 (0.6-1.2) LA Diam 3.8 (1.9-4.0) LVEF 66% LVIDd 4.5 (3.5-5.7) LVIDs 2.8 (2.0-3.5) %FS 36% LVPWd 1.1 (0.6-1.2) Ao Diam 3.0 (2.0-3.7) 2 DIMENSIONAL ASSESSMENT: RIGHT ATRIUM: NORMAL LEFT ATRIUM: NORMAL RIGHT VENTRICLE: NORMAL LEFT VENTRICLE: NORMAL TRICUSPID VALVE: NORMAL MITRAL VALVE: NORMAL PULMONIC VALVE: NORMAL AORTIC VALVE: NORMAL PERICARDIAL EFFUSION: NONE AORTIC ROOT: NORMAL LEFT VENTRICULAR WALL MOTION: NORMAL DOPPLER/COLOR FLOW: NORMAL COMMENTS: 1. NORMAL LEFT VENTRICULAR SYSTOLIC AND DIASTOLIC FUNCTION, EJECTION FRACTION 55-60% 2. NORMAL WALL MOTION TECHNOLOGIST: REGINA EDGE
== END 2023-08-02 13:17 | disposition home or self-care (01) ==
LOC: ER 11:28 → ERHOLD 15:43 → 2ND 16:37
PROVIDERS: ADMIT Hospitalist; ATTEND Hospitalist
DX: R07.9 Chest pain, unspecified (principal); I16.0 Hypertensive urgency; E78.5 Hyperlipidemia, unspecified; I10 Essential (primary) hypertension; F17.210 Nicotine dependence, cigarettes, uncomplicated; Z91.011 Allergy to milk products; Z91.148 Patient's other noncompliance with medication regimen for other reason; Z71.3 Dietary counseling and surveillance
CPT/HCPCS: 96365; 93306; 85025 ×2; 80048; 36415; 83735; 85610; 80061; 84484 ×3; 80053; 83880; 71045; 96375; 99285; 96366; J2270 ×2; J2405; 93005; G0378

== ENCOUNTER 2024-08-17 13:40 | Inpatient (IN) | payer OTHER ==
[2024-08-17] MEDS ORDERED: NITROGLYCERIN 0.4 MG/TAB SL ONE (14:15)
[2024-08-17 14:32] LABS: Absolute Basophils 0.1 K/uL (0-0.5); Absolute Eosinophils 0.2 K/uL (0-0.5); Absolute Lymphocytes (CBC) 3.6 K/uL (0.7-4.9); Absolute Neutrophil 10.2 K/uL (1.8-8.0); Basophils % 0.8 % (0-1.3); Eosinophils % 1.5 % (0-4.4); Hematocrit 44.5 % (39.6-49.0); Hemoglobin 15.4 g/dL (13.6-17.9); Lymphocytes % 23.8 % (15.3-44.8); MCH 28.4 pg (27.0-35.0); MCHC 34.6 g/dL (32.0-36.0); MCV 82.2 fL (80-100); MPV 8.9 fL (7.6-11.3); Monocytes % 6.6 % (3.3-12.3); Neutrophils % 67.3 % (41.7-73.7); Nucleated Red Blood Cells % 0.1 % (0-0); Platelets 398 thou/uL (152-406); RBC Red Blood Cell Count 5.41 M/uL (4.33-5.43); Red Cell Distribution Width 13.3 % (12.1-15.2)
[2024-08-17] MEDS ORDERED: ONDANSETRON 4 MG/2 ML VIAL ONE (14:44)
[2024-08-17] MEDS ORDERED: MORPHINE 4 MG/ML SYR ONE (14:44)
[2024-08-17 14:50] LABS: PT Prothrombin Time 12.6 SECONDS (10-13.0); Protime INR 1.11
[2024-08-17 14:51] LABS: ALT/SGPT 53 U/L (16-61); AST/SGOT 23 U/L (15-37); Albumin 3.7 g/dL (3.4-5.0); Albumin/Globulin Ratio 0.9 (1.1-1.8); Alkaline Phosphatase 93 U/L (45-117); Anion Gap 13.2 mEq/L (5.0-15.0); BUN Blood Urea Nitrogen 6 mg/dL (7-18); Bicarbonate 22 mEq/L (21-32); Bilirubin Total 0.3 mg/dL (0.2-1.0); Globulin 4.3 g/dL (2.3-3.5); Glomerular Filtration Rate 85 ml/min (=/>90); Glucose Level 119 mg/dL (74-106); Magnesium 1.8 mg/dL (1.6-2.4); NT PRO-BNP 41 pg/mL (<125); Potassium 3.2 mEq/L (3.5-5.1); Sodium Level 135 mEq/L (136-145)
--- NOTE | 2024-08-17 14:58 | RAD REPORT ---
EXAMINATION: ONE VIEW CHEST XR CLINICAL INDICATION: Male, 44 years old.,Chest pain;Palpitations TECHNIQUE: Frontal chest projection is submitted. Examination is limited by patient positioning and t echnique. COMPARISON: 08/01/2023 FINDINGS: The lungs are well inflated and clear. No pneumothorax or sizable effusion. The heart is normal in s ize. Mediastinal contours are unremarkable. IMPRESSION: No acute intrathoracic abnormalities.
[2024-08-17 15:42] LABS: Bilirubin Direct < 0.2 mg/dL (0-0.2); Bilirubin Indirect, Calculated 0.1 mg/dL (0.2-0.8); Troponin High Sensitivity < 3.0 pg/mL (<58.9)
--- NOTE | 2024-08-17 16:12 | RAD REPORT ---
EXAM: CT Chest For Pe Angio TECHNIQUE: CT angiogram of the chest was performed following intravenous contrast administration, inc luding sagittal and coronal as well as maximum intensity projection reformats. One or more of the following dose reduction techniques were used: Automated exposure control, adjustment of the mA and k V according to patient size, and iterative reconstruction. Unless otherwise specified, incidental findings do not require dedicated imaging follow-up. INDICATION: CHEST PAIN COMPARISON: CT chest 04/22/2023. Chest radiograph of the same day. FINDINGS: LINES/TUBES: None. PULMONARY ARTERIES: Main pulmonary arteries are normal in caliber. No filling defects within the pul monary arteries to suggest pulmonary embolus. LUNGS AND AIRWAYS: The lungs and central airways are normal without focal abnormality. Mild dependent atelectatic changes. PLEURA: No effusion or pneumothorax. HEART AND MEDIASTINUM: The visualized thyroid gland is normal. No mediastinal, hilar, or axillary lym phadenopathy. Heart is unremarkable. No pericardial effusion. SOFT TISSUES AND BONES: No acute osseous abnormality. No significant soft tissue finding. UPPER ABDOMEN: Unremarkable. IMPRESSION: No evidence of acute central pulmonary emboli. No suspicious intrathoracic findings..
--- NOTE | 2024-08-17 16:23 | EDPHYS ---
Physician Documentation [facility] Name: Delon Aburto Age: 44 yrs Sex: Male : 1980 Arrival Date: 08/17/2024 Time: 13:40 Bed 8 Private MD: ED Physician Rafaela Gonzalez HPI: 08/17 13:57 This 44 yrs old [place] Male presents to ER via Ambulatory with complaints of sp3 Shortness Of Breath, Palpitations, Dizziness, Chest Pain. 13:57 44-year-old male with history of hypertension, bipolar disease, PTSD sent by [facility] sp3 for elevated blood pressure, hypotension and active chest pain. Patient states that he has been having chest pain and palpitations off and on for the last 4 weeks. He is not on any current medications for blood pressure. He denies any headache, neck pain, abdominal pain, vomiting, diarrhea, syncope, rash, or any other signs or symptoms on ROS at this time. The chest pain and shortness of breath have been paroxysmal in nature.. Historical: - Allergies: 13:48 lactose (bulk); cm10 - PMHx: 13:48 Hypertensive disorder; Bipolar disorder; PTSD; cm10 - PSHx: 13:48 R foot surgery; cm10 - Immunization history:: Adult Immunizations up to date. - Infectious Disease History:: Denies. - Social history:: Smoking status: Reported history of juuling and/or vaping. Patient denies any tobacco usage or history of. ROS: 13:58 Constitutional: Negative for fever, chills, and weight loss, Eyes: Negative for injury, sp3 pain, redness, and discharge, ENT: Negative for injury, pain, and discharge, Neck: Negative for injury, pain, and swelling, Abdomen/GI: Negative for abdominal pain, nausea, vomiting, diarrhea, and constipation, Back: Negative for injury and pain, MS/Extremity: Negative for injury and deformity, Skin: Negative for injury, rash, and discoloration, Neuro: Negative for headache, weakness, numbness, tingling, and seizure, Psych: Negative for depression, anxiety, suicide ideation, homicidal ideation, and hallucinations, Allergy/Immunology: Negative for hives, rash, and allergies, Endocrine: Negative for neck swelling, polydipsia, polyuria, polyphagia, and marked weight changes, Hematologic/Lymphatic: Negative for swollen nodes, abnormal bleeding, and unusual bruising, 13:58 All other systems are negative, Exam: 13:58 Constitutional: This is a well developed, well nourished patient who is awake, alert, sp3 and in no acute distress. Head/Face: Normocephalic, atraumatic. Eyes: Pupils equal round and reactive to light, extra-ocular motions intact. Lids and lashes normal. Conjunctiva and sclera are non-icteric and not injected. Cornea within normal limits. Periorbital areas with no swelling, redness, or edema. Neck: Trachea midline, no thyromegaly or masses palpated, and no cervical lymphadenopathy. Supple, full range of motion without nuchal rigidity, or vertebral point tenderness. No Meningismus. Chest/axilla: Normal chest wall appearance and motion. Nontender with no deformity. No lesions are appreciated. Cardiovascular: Regular rate and rhythm with a normal S1 and S2. No gallops, murmurs, or rubs. Normal PMI, no JVD. No pulse deficits. Respiratory: Lungs have equal breath sounds bilaterally, clear to auscultation and percussion. No rales, rhonchi or wheezes noted. No increased work of breathing, no retractions or nasal flaring. Abdomen/GI: Soft, non-tender, with normal bowel sounds. No distension or tympany. No guarding or rebound. No evidence of tenderness throughout. Back: No spinal tenderness. No costovertebral tenderness. Full range of motion. Skin: Warm, dry with normal turgor. Normal color with no rashes, no lesions, and no evidence of cellulitis. MS/ Extremity: Pulses equal, no cyanosis. Neurovascular intact. Full, normal range of motion. Neuro: Awake and alert, GCS 15, oriented to person, place, time, and situation. Cranial nerves II-XII grossly intact. Motor strength 5/5 in all extremities. Sensory grossly intact. Cerebellar exam normal. Normal gait. Psych: Awake, alert, with orientation to person, place and time. Behavior, mood, and affect are within normal limits. 14:01 ECG was reviewed by the Attending Physician. EKG demonstrates normal sinus rhythm at 77 sp3 bpm with normal intervals, normal QRS, normal axis, nonspecific diffuse ST/T changes without evidence of acute ischemia. Vital Signs: 13:48 Pulse 90; Resp 18; Pulse Ox 96% on R/A; Weight 114.76 kg; Height 6 ft. 4 in. ; cm10 14:13 BP 173 / 123; Pulse 81; Resp 18 S; Pulse Ox 95% on R/A; kc6 14:31 BP 181 / 92; Pulse 83; kc6 14:41 BP 160 / 92; Pulse 85; kc6 15:04 BP 156 / 87; Pulse 76; Resp 17 S; Pulse Ox 92% on R/A; kc6 16:02 BP 155 / 103; Pulse 60; Resp 17 S; Pulse Ox 93% on R/A; kc6 13:48 Body Mass Index 30.80 (114.76 kg, 193.04 cm) cm10 MDM: 13:44 Medical Screening Exam initiated sp3 13:59 Data reviewed: vital signs, nurses notes, lab test result(s), EKG, radiologic studies. sp3 ED course: 44-year-old male with hypertension now with chest pain, shortness of breath, and high blood pressure. Differential diagnosis includes acute coronary syndrome, PE, palpitations, arrhythmia, electrolyte abnormality, among others. Workup include CT scan of the chest, chest x-ray, EKG, general labs and nitroglycerin will be administered to control blood pressure and chest pain. Disposition pending workup and patient course with possible admission if indicated.. 16:21 ED course: Patient improved after nitro. CT chest negative. Given patient's multitude sp3 of symptoms including chest pain, shortness of breath, hypertensive urgency and PVCs, we will place a 23-hour observation for serial cardiac markers and cardiology consultation. Patient will be admitted to inpatient service.. 08/17 13:43 Order name: Basic Metabolic Panel; Complete Time: 15:52 sp3 08/17 13:43 Order name: CBC with Diff; Complete Time: 15:52 sp3 08/17 13:43 Order name: LFT's; Complete Time: 15:52 sp3 08/17 13:43 Order name: Magnesium; Complete Time: 15:52 sp3 08/17 13:43 Order name: NT PRO-BNP; Complete Time: 15:52 3 08/17 13:43 Order name: PT-INR; Complete Time: 15:52 3 08/17 13:43 Order name: Troponin HS; Complete Time: 15:52 3 08/17 16:49 Order name: CBC with Automated Diff EDMS / 16:49 Order name: CBC with Automated Diff EDMS 08/17 16:49 Order name: Comprehensive Metabolic Panel EDMS 08/17 16:49 Order name: Comprehensive Metabolic Panel EDMS 08/17 16:49 Order name: Lipid Profile EDMS 08/17 16:49 Order name: Lipid Profile EDMS 08/17 16:51 Order name: Magnesium EDMS 08/17 16:51 Order name: Magnesium EDMS 08/17 16:51 Order name: Phosphorus EDMS 08/17 16:51 Order name: Phosphorus EDMS 08/17 16:53 Order name: Troponin High Sensitivity EDMS 08/17 16:53 Order name: Troponin High Sensitivity EDMS 08/17 16:53 Order name: Troponin High Sensitivity EDMS 08/17 17:00 Order name: Thyroid Stimulating Hormone EDMS 08/17 17:00 Order name: Thyroid Stimulating Hormone EDMS 08/17 13:43 Order name: XRAY Chest (1 view); Complete Time: 15:52 sp3 08/17 14:00 Order name: CT Chest For PE Angio; Complete Time: 16:15 sp3 08/17 16:49 Order name: Echo with Doppler EDMS 08/17 16:49 Order name: Rest Stress Cardiac Imaging EDMS 08/17 13:43 Order name: Cardiac monitoring; Complete Time: 14:00 sp3 08/17 13:43 Order name: EKG - Nurse/Tech; Complete Time: 14:00 sp3 08/17 13:43 Order name: IV Saline Lock; Complete Time: 14:13 sp3 08/17 13:43 Order name: Labs collected and sent; Complete Time: 14:00 sp3 08/17 13:43 Order name: O2 Per Protocol; Complete Time: 14:00 sp3 08/17 13:43 Order name: O2 Sat Monitoring; Complete Time: 14:00 sp3 Administered Medications: 14:17 Drug: Nitroglycerin Sublingual 0.4 mg Sublingual once; every five minute if needed x3 kc6 Route: Sublingual; 14:31 Drug: Nitroglycerin Sublingual 0.4 mg Sublingual once; every five minute if needed x3 kc6 Route: Sublingual; 14:40 Drug: Nitroglycerin Sublingual 0.4 mg Sublingual once; every five minute if needed x3 kc6 Route: Sublingual; 14:41 Follow up: Response: No adverse reaction; Pain is unchanged, physician notified; Blood kc6 pressure is lowered 14:49 Drug: morphine IVP or IV 4 mg IVP once over 4 mins Route: IVP; Infused Over: 4 mins; kc6 Site: left antecubital; 16:02 Follow up: Response: No adverse reaction kc6 14:49 Drug: Ondansetron IVP 4 mg IVP once; over 2 minutes Route: IVP; Site: left antecubital; kc6 16:03 Follow up: Response: No adverse reaction kc6 Disposition Summary: 08/17/24 16:23 Hospitalization Ordered Notes: Hospitalization Status: Observation sp3 Provider: Joe Webb sp3 Location: Telemetry/MedSurg (observation) sp3 Condition: Stable sp3 Problem: new sp3 Symptoms: have worsened sp3 Bed/Room Type: Standard sp3 Room Assignment: 207(08/17/24 18:53) 6 Diagnosis - Hypertensive urgency, chest pain, shortness of breath sp3 Forms: - Medication Reconciliation Form sp3 - SBAR form sp3 - Leadership Thank You Letter sp3 Signatures: Dispatcher [employer] EDRafaela Schwarz MD MD sp3 Ana María Colunga RN RN kc6 Bonny Ignacio bc6 Gladys Arizmendi RN RN cm10 Corrections: (The following items were deleted from the chart) 16:53 16:49 Troponin High Sensitivity ordered. EDMS EDMS 16:53 16:49 Troponin High Sensitivity ordered. EDMS EDMS 16:53 16:49 Troponin High Sensitivity ordered. EDMS EDMS 16:53 16:49 Troponin High Sensitivity ordered. EDMS EDMS 18:53 16:23 sp3 bc6
--- NOTE | 2024-08-17 16:23 | ER ---
Nurse's Notes [facility] Name: Delon Aburto Age: 44 yrs Sex: Male : 1980 Arrival Date: 08/17/2024 Time: 13:40 Bed 8 Private MD: Diagnosis: Hypertensive urgency, chest pain, shortness of breath Presentation: 08/17 13:48 Chief complaint: Patient states: SOB, CP, palpitations, dizziness for 1 week. [facility] cm10 patient. Coronavirus screen: Client denies travel out of the [place] in the last 14 days. At this time, the client does not indicate any symptoms associated with coronavirus-19. Ebola Screen: Patient denies travel to an Ebola-affected area in the 21 days before illness onset. Initial Sepsis Screen: Does the patient meet any 2 criteria? No. Patient's initial sepsis screen is negative. Does the patient have a suspected source of infection? No. Patient's initial sepsis screen is negative. Risk Assessment: Do you want to hurt yourself or someone else? Patient reports no desire to harm self or others. Onset of symptoms was August 10, 2024. 13:48 Method Of Arrival: Ambulatory cm10 13:48 Acuity: MARILYN 3 cm10 Triage Assessment: 13:49 General: Appears uncomfortable, Behavior is cooperative, anxious. Pain: Complains of cm10 pain in chest. Cardiovascular: Reports chest pain, palpitations, shortness of breath. Respiratory: Reports shortness of breath. Historical: - Allergies: 13:48 lactose (bulk); cm10 - PMHx: 13:48 Hypertensive disorder; Bipolar disorder; PTSD; cm10 - PSHx: 13:48 R foot surgery; cm10 - Immunization history:: Adult Immunizations up to date. - Infectious Disease History:: Denies. - Social history:: Smoking status: Reported history of juuling and/or vaping. Patient denies any tobacco usage or history of. Screenin:13 [facility] ED Fall Risk Assessment (Adult) History of falling in the last 3 months, kc6 including since admission No falls in past 3 months (0 pts) Confusion or Disorientation No (0 pts) Intoxicated or Sedated No (0 pts) Impaired Gait No (0 pts) Mobility Assist Device Used No (0 pt) Altered Elimination No (0 pt) Score/Fall Risk Level 0 - 2 = Low Risk Oriented to surroundings, Maintained a safe environment. Abuse screen: Denies threats or abuse. Denies injuries from another. Nutritional screening: No deficits noted. Tuberculosis screening: No symptoms or risk factors identified. Assessment: 13:45 General: Appears in no apparent distress. uncomfortable, well groomed, well developed, kc6 Behavior is calm, cooperative, appropriate for age. Pain: Complains of pain in chest. Neuro: Level of Consciousness is awake, alert, obeys commands, Oriented to person, place, time, situation, Appropriate for age Reports dizziness. Cardiovascular: Reports chest pain, diaphoresis, lightheadedness, palpitations, shortness of breath, Heart tones S1 S2 present Capillary refill < 3 seconds Rhythm is regular. Respiratory: Reports shortness of breath at rest on exertion Airway is patent Trachea midline Respiratory effort is even, unlabored, Respiratory pattern is regular, symmetrical. Derm: No signs and/or symptoms reported regarding the dermatologic system. Skin is intact, is healthy with good turgor, Skin is clammy, Skin is pale, Skin temperature is warm. 14:45 Reassessment: Patient appears in no apparent distress at this time. No changes from kc6 previously documented assessment. Patient and/or family updated on plan of care and expected duration. Pain level reassessed. Patient is alert, oriented x 3, equal unlabored respirations, skin warm/dry/pink. 15:45 Reassessment: Patient appears in no apparent distress at this time. No changes from kc6 previously documented assessment. Patient and/or family updated on plan of care and expected duration. Pain level reassessed. Patient is alert, oriented x 3, equal unlabored respirations, skin warm/dry/pink. 16:45 Reassessment: Patient appears in no apparent distress at this time. No changes from kc6 previously documented assessment. Patient and/or family updated on plan of care and expected duration. Pain level reassessed. Patient is alert, oriented x 3, equal unlabored respirations, skin warm/dry/pink. 17:45 Reassessment: Patient appears in no apparent distress at this time. No changes from kc6 previously documented assessment. Patient and/or family updated on plan of care and expected duration. Pain level reassessed. Patient is alert, oriented x 3, equal unlabored respirations, skin warm/dry/pink. 18:45 Reassessment: Patient appears in no apparent distress at this time. No changes from kc6 previously documented assessment. Patient and/or family updated on plan of care and expected duration. Pain level reassessed. Patient is alert, oriented x 3, equal unlabored respirations, skin warm/dry/pink. Vital Signs: 13:48 Pulse 90; Resp 18; Pulse Ox 96% on R/A; Weight 114.76 kg; Height 6 ft. 4 in. ; cm10 14:13 BP 173 / 123; Pulse 81; Resp 18 S; Pulse Ox 95% on R/A; kc6 14:31 BP 181 / 92; Pulse 83; kc6 14:41 BP 160 / 92; Pulse 85; kc6 15:04 BP 156 / 87; Pulse 76; Resp 17 S; Pulse Ox 92% on R/A; kc6 16:02 BP 155 / 103; Pulse 60; Resp 17 S; Pulse Ox 93% on R/A; kc6 13:48 Body Mass Index 30.80 (114.76 kg, 193.04 cm) cm10 ED Course: 13:42 Patient arrived in ED. im 13:42 Rafaela Gonzalez MD is Attending Physician. sp3 13:43 Rafaela Gonzalez MD is Attending Physician. sp3 13:48 Arm band placed on Patient placed in an exam room, on a stretcher. cm10 13:49 Triage completed. cm10 14:00 London Calderon, RN is Primary Nurse. bp 14:12 XRAY Chest (1 view) In Process Unspecified. EDMS 14:13 Patient has correct armband on for positive identification. Bed in low position. Call [facility] light in reach. Side rails up X 1. Adult w/ patient. finance professional on. Pulse ox on. NIBP on. Door closed. Noise minimized. Lights dimmed. Pillow given. Verbal reassurance given. 14:13 Initial lab(s) drawn, by me, sent to lab. Inserted saline lock: 20 gauge in left [facility] antecubital area, using aseptic technique. Blood collected. Flushed with 10 mL NS. Patient maintains SpO2 saturation greater than 95% on room air. 14:25 CT Chest For PE Angio In Process Unspecified. EDMS 14:41 Patient requests pain medication. 6 16:22 Alena Louise MD is Hospitalizing Provider. sp3 16:22 Hospitalizing Provider role handed off by Alena Louise MD sp3 16:22 Joe Webb MD is Hospitalizing Provider. sp3 19:49 No provider procedures requiring assistance completed. Patient admitted, IV remains in vc1 place. 19:50 Provided Education on: Plan of care. vc1 Administered Medications: 14:17 Drug: Nitroglycerin Sublingual 0.4 mg Sublingual once; every five minute if needed x3 kc6 Route: Sublingual; 14:31 Drug: Nitroglycerin Sublingual 0.4 mg Sublingual once; every five minute if needed x3 kc6 Route: Sublingual; 14:40 Drug: Nitroglycerin Sublingual 0.4 mg Sublingual once; every five minute if needed x3 kc6 Route: Sublingual; 14:41 Follow up: Response: No adverse reaction; Pain is unchanged, physician notified; Blood kc6 pressure is lowered 14:49 Drug: morphine IVP or IV 4 mg IVP once over 4 mins Route: IVP; Infused Over: 4 mins; kc6 Site: left antecubital; 16:02 Follow up: Response: No adverse reaction kc6 14:49 Drug: Ondansetron IVP 4 mg IVP once; over 2 minutes Route: IVP; Site: left antecubital; kc6 16:03 Follow up: Response: No adverse reaction kc6 Medication: 19:49 VIS not applicable for this client. vc1 Outcome: 16:23 Decision to Hospitalize by Provider. sp3 19:49 Admitted to Med/surg accompanied by tech, via wheelchair, room 207, with chart, vc1 19:49 Condition: stable 19:49 Instructed on the need for admit, 19:58 Patient left the ED. vk Signatures: Dispatcher [employer] EDMS London Calderon RN RN Rafaela Bahena MD MD sp3 Deborah Leon RN RN vc1 Ana María Colunga RN RN kc6 Salma Jensen Clarissa RN RN cm10 Melony Hayes vk
[2024-08-17] MEDS ORDERED: ONDANSETRON 4 MG/2 ML VIAL IV PRN (16:43)
[2024-08-17] MEDS ORDERED: ACETAMINOPHEN 500 MG TAB PO PRN (16:43)
[2024-08-17] MEDS ORDERED: HYDRALAZINE HCL 20 MG/ML VIAL IV PRN (16:46)
[2024-08-17] MEDS: AMLODIPINE 10 MG TAB PO SCH (16:48)
[2024-08-17] MEDS: POTASSIUM CL SA 10 MEQ TAB PO ONE (16:49)
--- NOTE | 2024-08-17 16:57 | P.HP ---
Certification for Inpatient Patient will require the following post-hospital care: None Practitioner: I am a practitioner with admitting privileges, knowledge of patient current condition, hospital course, and medical plan of care. Services: Services provided to patient in accordance with Admission requirements found in Title 42 Section 412.3 of the Code of Federal Regulations Patient History Date of Service: 08/17/24 Reason for admission: Chest pain History of Present Illness: 44-year-old patient with history of hypertension who is not on any medications presented with chest pain, initially he presented to [place] [facility] with chest pain, his blood pressure was significantly elevated, due to chest pain and high blood pressure he was transferred to the emergency room. Complaining of chest pain for the last 1 week, located on mid chest, no radiation, sharp and squeezing type of pain, moderate in intensity, no specific aggravating or relieving factors, sometimes along with chest pain he felt dizzy but no blackouts. Complaining of shortness of breath for the last 1 week along with chest pain. He had some headache today, he gets migraine headaches and this is very common for him. He had diarrhea for few days, resolved yesterday. He lost approximately 20 pounds in the last 3 months. Other than this he denies any other acute complaints. No double vision or blurry vision. No cough or sputum production. No nausea or vomiting. No abdominal pain. No blood in the urine or stool. No fever. No lower extremity edema. No joint pains. Review of systems: All other 10 point review of systems are negative other than as mentioned above. Allergies and medications: Reviewed, as per med rec EMR. Past medical history: Hypertension, depression, bipolar disorder, PTSD Past surgical history: Right foot and right hand surgery Social history: No smoking or alcohol or drugs. Positive for vaping Family history: No family history of CVA. Grandmother had a history of MD Physical examination: Vital signs: Reviewed, as per EMR. General appearance: Alert and comfortable HEENT: Extraocular movements intact, oral mucosa moist. CVS: Normal S1-S2 Lungs: Clear to auscultation bilaterally Abdomen: Soft, bowel sounds present, no tenderness Extremities: No lower extremity edema GLASS MAKER: Moves all 4 extremities, no obvious focal deficits Musculoskeletal: No obvious joint swelling or tenderness Allergies lactose Adverse Reaction (Verified 08/01/23 15:49) Nausea/Vomiting Home Medications: Buspirone HCl [Buspar] 20 mg PO BID 08/01/23 [place] Carbonate [Lithotabs *] 600 mg PO BEDTIME 08/01/23 Quetiapine Fumarate [Seroquel] 500 mg PO BEDTIME 08/01/23 Venlafaxine HCl [Effexor] 50 mg PO BID 08/01/23 hydrOXYzine HCL [Atarax*] 25 mg PO BID 08/01/23 Amlodipine [Norvasc*] 10 mg PO DAILY 90 Days #90 tab 08/02/23 Atorvastatin Calcium [Lipitor] 40 mg PO BEDTIME 90 Days #90 tab 08/02/23 Losartan Potassium [Cozaar*] 50 mg PO BID 90 Days #90 tab 08/02/23 Metoprolol Tartrate [Lopressor*] 50 mg PO BID 6AM 6PM 30 Days #60 tab 08/02/23 - Past Medical/Surgical History Diabetic: No -: Hypertension -: Migraines -: rt wrist sx - Family History Father -: Heart disease - Social History Alcohol use: No CD- Drugs: No Physical Examination - Studies Laboratory Data (last 24 hrs) 08/17/24 08/17/24 08/17/24 14:11 14:11 14:11 WBC 15.10 H Hgb 15.4 Hct 44.5 Plt Count 398 PT 12.6 INR 1.11 Sodium 135 L Potassium 3.2 L BUN 6 L Creatinine 1.11 Glucose 119 H Magnesium 1.8 Total Bilirubin 0.3 AST 23 ALT 53 Alkaline Phosphatase 93 Assessment and Plan - Plan Assessment and plan: 1. Hypertensive urgency, chest pain and shortness of breath: Will resume beta- chris and Norvasc, add as needed hydralazine, monitor blood pressure closely. Initial troponin negative, EKG some nonspecific ST-T changes, will get an echo and stress test, cardiology consult requested. 2. Leukocytosis: Probably reactive, chest x-ray and CT chest was negative, no fever, no obvious signs of infection, monitor closely. 3. Hypokalemia: Replace and monitor. 4. Depression, bipolar disorder, PTSD: Continue home medications 5. 20 pounds weight loss in 3 months: Will check TSH, this need close follow-up with PCP. DVT prophylaxis: Lovenox CODE STATUS: He would like to be full code I Discussed all the plan with the patient, he understands and agrees with the plan. - Advance Directives Does patient have a Living Will: No Does patient have a Durable POA for Healthcare: No
[2024-08-17 20:10] VITALS: O2SAT 93
[2024-08-17] MEDS: METOPROLOL TAR 50 MG TAB PO SCH (20:54)
[2024-08-17] MEDS: ATORVASTATIN 40 MG TAB PO SCH (20:55)
[2024-08-18 00:22] LABS: Potassium 3.8 mEq/L (3.5-5.1)
[2024-08-18 00:43] VITALS: BMI 30.8
[2024-08-18] MEDS: POTASSIUM CL SA 10 MEQ TAB PO ONE ×2 (03:36→08:01)
[2024-08-18 07:04] LABS: Absolute Basophils 0.1 K/uL (0-0.5); Absolute Eosinophils 0.4 K/uL (0-0.5); Absolute Lymphocytes (CBC) 4.1 K/uL (0.7-4.9); Absolute Neutrophil 7.9 K/uL (1.8-8.0); Basophils % 1.1 % (0-1.3); Eosinophils % 3.2 % (0-4.4); Hematocrit 44.1 % (39.6-49.0); Hemoglobin 14.8 g/dL (13.6-17.9); Lymphocytes % 30.2 % (15.3-44.8); MCH 27.8 pg (27.0-35.0); MCHC 33.5 g/dL (32.0-36.0); MPV 8.6 fL (7.6-11.3); Monocytes % 7.3 % (3.3-12.3); Neutrophils % 58.2 % (41.7-73.7); Nucleated Red Blood Cells % 0.1 % (0-0); Platelets 354 thou/uL (152-406); RBC Red Blood Cell Count 5.32 M/uL (4.33-5.43)
[2024-08-18 07:28] LABS: Albumin 3.2 g/dL (3.4-5.0); Albumin/Globulin Ratio 0.8 (1.1-1.8); Anion Gap 10.1 mEq/L (5.0-15.0); Bilirubin Total 0.3 mg/dL (0.2-1.0); Magnesium 2.1 mg/dL (1.6-2.4); Phosphorus 3.5 mg/dL (2.5-4.9); Potassium 4.1 mEq/L (3.5-5.1); Protein, Total 7.2 g/dL (6.4-8.2); Thyroid Stimulating Hormone 1.32 uIU/mL (0.358-3.740)
[2024-08-18] MEDS: ENOXAPARIN 40 MG/0.4 ML SQ SCH (08:02)
[2024-08-18] MEDS ORDERED: REGADENOSON 0.4 MG/5 ML SYR IV ONE (12:15)
--- NOTE | 2024-08-18 12:57 | RAD REPORT ---
EXAM: Nuclear medicine cardiac perfusion examination with ejection fraction HISTORY: Chest pain chest pain TECHNIQUE: Rest images: 10.8 mCi technetium 99m sestamibi Stress images: 27.6 mCi of technetium 99m sestamibi COMPARISON: None. FINDINGS: Tomographic images: No fixed or reversible perfusion defects. No finding to suspect hibernating myocardium. Ejection fraction of 63%. EDV: 103 mL ESV: 38 mL LHR: 0.3 TID: 1.0 IMPRESSION: No evidence of stress induced ischemia.
--- NOTE | 2024-08-18 14:31 | ECHO ---
HEIGHT: 6 ft 4 in WEIGHT: 253 lb 0 oz DATE OF STUDY: 08/18/[address]: Joe Webb 2-DIMENSIONAL: YES M.MODE: YES DOPPLER: YES COLOR FLOW: YES TDS: YES PORTABLE: YES DEFINITY: NO BUBBLE STUDY: NO DIAGNOSIS: CHEST PAIN CARDIAC HISTORY: CATHERIZATION: NO SURGERY: NO PROSTHETIC VALVE: NO PACEMAKER: NO MEASUREMENTS (cm) DIASTOLIC (NORMALS) SYSTOLIC (NORMALS) IVSd 1.1 (0.6-1.2) LA Diam 3.5 (1.9-4.0) LVEF 55-60% LVIDd 4.2 (3.5-5.7) LVIDs 2.9 (2.0-3.5) %FS 30% LVPWd 1.1 (0.6-1.2) Ao Diam 3.1 (2.0-3.7) 2 DIMENSIONAL ASSESSMENT: RIGHT ATRIUM: NORMAL LEFT ATRIUM: NORMAL RIGHT VENTRICLE: NORMAL LEFT VENTRICLE: NORMAL TRICUSPID VALVE: NORMAL MITRAL VALVE: TRACE OF MITRAL REGURGITATION PULMONIC VALVE: NORMAL AORTIC VALVE: NORMAL PERICARDIAL EFFUSION: NONE AORTIC ROOT: NORMAL LEFT VENTRICULAR WALL MOTION: NORMAL. DOPPLER/COLOR FLOW: SEE BELOW. COMMENTS: 1. NORMAL LEFT VENTRICULAR EJECTION FRACTION 55-60%. 2. NORMAL WALL MOTION. 3. NORMAL DIASTOLIC FUNCTION. TECHNOLOGIST: REGINA FORBES
--- NOTE | 2024-08-18 15:14 | TREADPHA ---
DX: CHEST PAIN Date of Study: 08/18/24 Ht: 6' 4 " Wt: 253 lb 0 oz Consulting Physician: LUKAS MEDICATIONS: TYLENOL, NOVASC, LIPITOR, LOVENOX, APRESOLINE, LOPRESSOR, ZOFRAN HISTORY: HYPERTENSION, BIPOLAR, DEPRESSION, WRIST AND FOOT SURGERY, SCHIZOPHRENIA, LACTOSE INTOLERANT, CURRENT CHEST PAIN 7 OUT OF 10 ON PAIN SCALE. PHYSICIAL EXAMINATION: RESTING B.P.: 136/94 RESTING H.R.: 61 RESTING EKG: NORMAL SINUS PROTOCOL: LEXISCAN EXERCISE TIME: 3:30 B.P. AT PEAK STRESS: 152/81 IMPRESSION: LEXISCAN INJECTED. CARDIOLITE INJECTED SEE NUCLEAR MEDICINE REPORT. CHEST PAIN OR 12/20. COMPLAINTS OF SHORTNESS OF BREATH - 99.1 SpO2. NO ARRHYTMIA. NO EKG CHANGES OF ISCHEMIA WITH LEXISCAN.
--- NOTE | 2024-08-18 16:00 | P.DS ---
Admission Date: 08/17/24 Discharge Date: 08/18/24 Disposition: DC HOME/HOME HEALTH CARE Discharge Condition: GOOD Reason for Admission: Chest pain Brief History of Present Illness: Discharge diagnosis: 1. Hypertensive urgency, chest pain and shortness of breath: -Blood pressure improved - Still some chest pain and shortness of breath, looks more related to anxiety, need close follow-up with psychiatry - CT chest negative, echo normal EF, no wall motion abnormalities, stress test negative for ischemia 2. Leukocytosis: Probably reactive, chest x-ray and CT chest was negative, no fever, no obvious signs of infection, monitor closely. - WBC improving 3. Hypokalemia: Replaced, follow-up with PCP 4. Depression, bipolar disorder, PTSD: Continue home medications, need close follow-up with psychiatry 5. 20 pounds weight loss in 3 months: TSH normal, weight loss may be related to underlying depression as well, this need close follow-up with PCP for further workup. 6. Hyperlipidemia: Advised dietary change, need close follow-up with PCP, consider starting medication depending on repeat levels Hospital course: 44-year-old patient presented with high blood pressure, chest pain and shortness of breath, he was started on metoprolol and Norvasc, blood pressure is improving, he had a CT chest at time of admission which was negative, he had an echo which is normal EF, no wall motion abnormalities, he had a stress test which is negative for ischemia, when I see the patient this morning he is still complaining of some chest discomfort and short of breath but symptoms are improving when compared with admission, I think it is more of related to his underlying psychiatric issues and anxiety, I strongly advised the patient to closely follow-up with PCP and psychiatrist, as his blood pressure is improving, lab work pretty stable, I am planning to discharge him to go home and close follow-up with PCP and psychiatry, follow-up with cardiology as needed. Cardiology cleared to discharge as well. Subjective: c/o chest pain and shortness of breath but better compared with admission. No nausea or vomiting. No abdominal pain. No obvious bleeding. Looks comfortable in the bed. Objective: General appearance: Alert and comfortable CVS: Normal S1 and S2 Lungs: Clear to auscultation bilaterally Abdomen: Soft, bowel sounds present, no tenderness Extremities: No lower extremity edema Vital Signs/Physical Exam: Temp Pulse Resp BP Pulse Ox 97.9 F 68 16 147/96 H 95 08/18/24 08:00 08/18/24 08:00 08/18/24 08:00 08/18/24 08:00 08/18/24 08:00 Laboratory Data at Discharge: WBC 13.50 thou/uL (4.3-10.9) H 08/18/24 06:54 Hgb 14.8 g/dL (13.6-17.9) 08/18/24 06:54 Hct 44.1 % (39.6-49.0) 08/18/24 06:54 Plt Count 354 thou/uL (152-406) 08/18/24 06:54 PT 12.6 SECONDS (10-13.0) 08/17/24 14:11 INR 1.11 08/17/24 14:11 Sodium 137 mEq/L (136-145) 08/18/24 06:54 Potassium 4.1 mEq/L (3.5-5.1) 08/18/24 06:54 BUN 11 mg/dL (7-18) 08/18/24 06:54 Creatinine 1.09 mg/dL (0.70-1.30) 08/18/24 06:54 Glucose 101 mg/dL (74-106) 08/18/24 06:54 Phosphorus 3.5 mg/dL (2.5-4.9) 08/18/24 06:54 Magnesium 2.1 mg/dL (1.6-2.4) 08/18/24 06:54 Total Bilirubin 0.3 mg/dL (0.2-1.0) 08/18/24 06:54 AST 23 U/L (15-37) 08/18/24 06:54 ALT 49 U/L (16-61) 08/18/24 06:54 Alkaline Phosphatase 89 U/L (45-117) 08/18/24 06:54 Triglycerides 205 mg/dL (<150) H 08/18/24 06:54 Cholesterol 237 mg/dL (<200) H 08/18/24 06:54 HDL Cholesterol 38 mg/dL (40-60) L 08/18/24 06:54 Cholesterol/HDL Ratio 6.24 08/18/24 06:54 Home Medications: Quetiapine Fumarate [Seroquel] 200 mg PO BEDTIME 08/01/23 Aspirin/Acetaminophen/Caffeine [Excedrin Migraine Caplet] 1 tab PO DAILY 08/17/24 Fluoxetine HCl 20 mg PO DAILY 08/17/24 Amlodipine [Norvasc*] 10 mg PO DAILY #30 tab 08/18/24 Metoprolol Tartrate [Lopressor*] 50 mg PO BID #60 tab 08/18/24 New Medications: Metoprolol Tartrate [Lopressor*] 50 mg PO BID #60 tab Amlodipine [Norvasc*] 10 mg PO DAILY #30 tab Diet: low fat Activity: Ad neil [facility]up: [facility] [Primary Care Provider] - 1 Week (f/u with PCP in 1 week with CBC and CMP. Need close follow up with psychiatry. your cholesterol is high, may need medication, close follow up with PCP, consider weight loss and change diet) Solomon Cardona MD [ACTIVE - CAN ADMIT] - (follow up as needed) Time spent managing pt's care (in minutes): 32
[2024-08-18 17:06] VITALS: BP 134/90; TEMP 98.2
--- NOTE | 2024-08-18 18:29 | CON ---
Date of Consultation: 08/18/2024 Reason For Consultation: Chest pain. History Of Present Illness: This is a 44-year-old male, past medical history of hypertension, bipola r disorder, posttraumatic stress disorder, comes in with chest pain. By that time, his blood pressur e was significantly elevated. He was seen in the [facility] and was sent to the emergency room. He c laimed that chest pain is retrosternal, no radiation. No shortness of breath and it is short lived. No chest pain at the present time. Past Medical History: Hypertension, depression, bipolar disorder, posttraumatic stress disorder. Medications: Refer to reconciliation sheet for detailed list. Allergies: LACTOSE. Family History: No premature coronary artery disease or cancer. Social History: Does not smoke or drink. Does not use any drugs. Review of Systems: All systems reviewed and they were negative except as mentioned in the HPI. Physical Examination: Vital Signs: Reviewed. Head and Neck: Pupils are equal, reactive to light. Neck is supple. Thyroid is not enlarged. Lungs: Clear to auscultation bilaterally. No rhonchi, wheezing, or crackles. No accessory muscle u se. Heart: Regular rate and rhythm. No extra sounds. Abdomen: Soft, nontender. Bowel sounds are positive. No organomegaly. No masses or hernia. No ri gidity or rebound. Extremities: No edema, clubbing, or cyanosis. Intact pulses. Skin: No rash. No nodules. Neurologic: Alert, awake, and oriented x3. No acute focal deficits appreciated. Investigations: Troponins are negative. Cardiac stress test, no evidence of ischemia. An echo is n ormal. Assessment And Recommendations: 1. Chest pain, atypical. Negative troponins, normal stress test and normal echo. The patient was as sured likely this is noncardiac. The patient can be released from Cardiology standpoint to follow up with me in the office in 4 weeks post discharge. 2. Dyslipidemia. Continue Lipitor 40 mg at bedtime. 3. Hypertension. Blood pressure is much better. Continue current medications. Cardiology will sign off. SR/MODL Voice ID: [id number] Report ID: [id number]
--- NOTE | 2024-08-21 12:11 | EKG ---
Test Date: 2024-08-17 Test Time: 13:55:47 Riverboat Captain: KRISTOFER MEASUREMENT RESULTS: Intervals: Rate: 77 NE: 176 QRSD: 82 QT: 370 QTc: 418 [place]: P: 64 NE: 176 QRS: 74 T: 19 INTERPRETIVE STATEMENTS: Normal sinus rhythm Nonspecific T wave abnormality Abnormal ECG Compared to ECG 08/01/2023 11:45:11 T-wave abnormality now present Electronically Signed On 08-21-24 12:07:56 CDT by Nirav Lema
== END 2024-08-18 18:07 | disposition home health service (06) | DRG 880 ==
LOC: ER 13:40 → ERHOLD 16:43 → 2ND 19:11
PROVIDERS: ADMIT Hospitalist; ATTEND Hospitalist
DX: F41.9 Anxiety disorder, unspecified (principal); I16.0 Hypertensive urgency; I10 Essential (primary) hypertension; F31.9 Bipolar disorder, unspecified; F43.10 Post-traumatic stress disorder, unspecified; I49.3 Ventricular premature depolarization; E87.6 Hypokalemia; E78.5 Hyperlipidemia, unspecified; Z79.82 Long term (current) use of aspirin; Z79.899 Other long term (current) drug therapy
CPT/HCPCS: 36415; 71045; 71275; 78452; 80048; 80053; 80061; 80076; 83735; 83880; 84100; 84132; 84443; 84484; 85025; 85610; 93005; 93017; 93306; 96374; 96375; 99285; A9500; J1650; J2405; J2785